=== PATIENT | male | born 1970 | race Caucasian/White ===

== ENCOUNTER 2016-03-24 12:58 | Emergency (ER) | payer OTHER ==
[~2016-03-24] VITALS: Ht 170.2 cm; Wt 97.5 kg
[2016-03-24 13:00] VITALS: BP 131/85
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
--- NOTE | 2016-03-24 13:58 | CT SCAN REPORT ---
EXAMINATION: CT CERVICAL SPINE WITHOUT CONTRAST CLINICAL INFORMATION: Pain after trauma COMPARISON: None TECHNIQUE: Multidetector imaging through the cervical spine without contrast DLP: 369.30 mGy-cm FINDINGS: The vertebra are normal in height and alignment. Prevertebral soft tissues are intact. No fractures are seen. There is moderate spondylosis and degenerative disease in mid cervical levels. In particular, there is spinal stenosis demonstrated at C5-C6 and C6-C7 with neural foraminal narrowing. IMPRESSION: Mid cervical spondylosis with degenerative disease. No acute osseous finding.
== END 2016-03-24 14:11 ==
LOC: ERH 12:58
DX: S13.4XXA Sprain of ligaments of cervical spine, initial encounter (principal); V69.3XXA Occupant (driver) (passenger) of heavy transport vehicle injured in unspecified nontraffic accident, initial encounter

== ENCOUNTER 2017-07-12 08:39 | Emergency (ER) | payer OTHER ==
[~2017-07-12] VITALS: Ht 170.2 cm; Wt 102.1 kg
[2017-07-12 08:44] VITALS: BP 123/80
[2017-07-12] MEDS ORDERED: ZYRTEC10 M3 PO (09:36)
[2017-07-12] MEDS ORDERED: PATANOL5 ML OPH (09:36)
[2017-07-12] MEDS ORDERED: DELTASONE20 MG PO (09:36)
--- NOTE | 2017-07-12 09:37 | ED EYE COMPLAINT ---
History of Present Illness General Chief Complaint: Allergy Symptoms Stated Complaint: ? 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 STATES HE HAS SEASONAL ALLERGIES BUT NEVER THIS BAD. DENIES ANY DIFFICULTY BREATHING, NO TONGUE SWELLING NOTED, NO AIRWAY ISSUES Triage Nurses Notes Reviewed? 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 Sudden onset of symptoms. Denies any vision loss or pain denies any photophobia. Denies wearing any contacts. He was cutting grass when suddenly he had profoundly watery itchy eyes that has not gotten better and comes into the ER for further evaluation. (Ritesh Price) Past History Travel History Traveled to [place] past 21 day No Medical History Any Pertinent Medical History? 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 No (Ritesh Price) Review of Systems Review of Systems Constitutional: Reports: no symptoms. Eyes: Reports: see HPI. Ear: Reports: no symptoms. Nose: Reports: no symptoms. Mouth: Reports: no symptoms. Throat: Reports: no symptoms. Respiratory: Reports: no symptoms. Cardiovascular: Reports: no symptoms. GI: Reports: no symptoms. Genitourinary: Reports: no symptoms. Musculoskeletal: Reports: no symptoms. Skin: Reports: no symptoms. Neurological/Psychological: Reports: no symptoms. Hematologic/Endocrine: Reports: no symptoms. Immunologic/Allergic: Reports: see HPI. All Other Systems: Reviewed and Negative (Ritesh Price) Physical Exam General Appearance: well developed/nourished, mild distress General Inspection: periorbital swelling Conjunctiva/Sclera: injected, cLEAR DISCHARGE Cornea: normal inspection EOM: intact Pupil: normal pupil, PERRL Anterior Chamber: normal inspection General Inspection: periorbital swelling Conjunctiva/Sclera: injected, CLEAR DISCHARGE Cornea: normal inspection EOM: intact Pupil: normal pupil, PERRL Anterior Chamber: normal inspection Physical Exam Head: atraumatic Nose: normal inspection Mouth/Throat: normal mouth inspection Neck: normal inspection Cardiovascular/Respiratory: no respiratory distress Neurologic/Psych: awake, alert, oriented x 3, normal mood/affect Skin: intact, normal color, warm/dry (Ritesh Price) Progress Differential Diagnosis: corneal abrasion, corneal foreign body, conjunctivitis, HAY FEVER Plan of Care: 07/12/2017 9:41:25 AM Patient clinically looks well. Patient is in no apparent distress. Patient is nontoxic-appearing. Symptoms are most consistent with allergic conjunctivitis/a fever. Patient treated symptomatically. No evidence of anaphylaxis. Return if any concerns worsening symptoms. (Ritesh Price) Departure Departure Disposition: HOME OR SELF CARE Condition: Stable Clinical Impression Primary Impression: Allergic conjunctivitis Referrals: Krish Barksdale MD (PCP/Family) Additional Instructions: Use Patanol drops, Zyrtec, prednisone as prescribed. Cool compresses to eyes. Return if any concerns worsening symptoms. Please go over all results of today's visit with your primary care doctor. Contact your primary care doctor to let them know you were here in the emergency room. There may be nonspecific findings which may not be related to your visit today here in the emergency room but may require further evaluation and chronic monitoring by your primary care doctor. If you had a laceration today the chance of foreign body always remains. You should follow-up with your primary care doctor for recheck in 3-5 days for a wound check. If you had an x-ray done there is a chance that a fracture could have been missed on initial read and you should follow-up with your primary care doctor for repeat x-rays if symptoms persist. If your blood pressure was elevated here in the emergency room please have rechecked by jason primary care doctor within the next 48. If you were prescribed a narcotic here in the emergency room or any type of controlled substances you're not allowed to drive while taking this medication or operate any type of heavy machinery. Narcotics can make you feel lightheaded dizziness nausea and can cause constipation. You may need to miner pick a stool softener. Thank you for choosing [facility] emergency room. Please return to the emergency room immediately if you have any other concerns worsening of symptoms. Departure Forms: Customer Survey General Discharge Information Industrial Accident Report Prescriptions: Current Visit Scripts Olopatadine HCl (Patanol) 1 GTT OPH BID #5 ML Prednisone (Deltasone) 1 TAB PO DAILY #5 TAB Cetirizine HCl (Zyrtec) 1 TAB PO DAILY #30 TAB (Ritesh Price) PA/RECOVERY ANALYST Co-Sign Statement Statement: ED Attending supervision documentation- [] I saw and evaluated the patient. I have also reviewed all the pertinent lab results and diagnostic results. I agree with the findings and the plan of care as documented in the PA's/RECOVERY ANALYST's documentation. [x] I have reviewed the ED Record and agree with the PA's/RECOVERY ANALYST's documentation. [] Additions or exceptions (if any) to the PAs/RECOVERY ANALYST's note and plan are summarized below: [] (Kenny Nieto DO)
== END 2017-07-12 09:44 ==
LOC: ERH 08:39
DX: H10.13 Acute atopic conjunctivitis, bilateral (principal); X58.XXXA Exposure to other specified factors, initial encounter; Y93.9 Activity, unspecified; Y92.9 Unspecified place or not applicable